=== PATIENT | male | born 1980 | race Caucasian/White ===

== ENCOUNTER 2017-11-09 20:16 | Inpatient (IN) | payer OTHER ==
[~2017-11-09] VITALS: Ht 167.6 cm; Wt 79.4 kg
[~2017-11-09 20:16] MED LIST: AMLODIPINE BESYL5 M1 PO; CIPRO500 M1 PO; CIPROFLOXACIN500 M2 PO; KETOROLAC TROME10 M1 PO; LEVSIN0.125 M1 PO; NEURONTIN800 M2 PO; OXYCODONE-ACET1 EACH PO; PRAVASTATIN SOD20 M2 PO; TAMSULOSIN HCL0.4 M1 PO; TESTOSTERO200 MG/1 M IM; VIAGRA50 MG PO
--- NOTE | 2017-11-09 20:52 | ED DYSPNEA/ASTHMA COMPLAINT ---
History of Present Illness General Chief Complaint: General Adult Stated Complaint: FEVER,SORE THROAT,SINUS PAIN,ROJO,COUGH Source: patient, old records Exam Limitations: no limitations Vital Signs & Intake/Output Vital Signs & Intake/Output Vital Signs Date Time Temp Pulse Resp B/P B/P Pulse O2 O2 Flow FiO2 Mean Ox Delivery Rate 11/092 Room Air 11/09 2029 101.0 110 20 150/80 96 Room Air Allergies Coded Allergies: No Known Allergies (10/25/17) Reconcile Medications Albuterol Sulfate (Proair Hfa) 90 MCG HFA.AER.AD 2 PUF INH Q4-6 PRN PRN DIFFICULTY BREATHING . Amitriptyline HCl 10 MG TABLET 4 TAB PO QPM SLEEP/MIGRAINES (Reported) Amoxicillin/Potassium Clav (Augmentin 875-125 Tablet) 875 MG-125 MG TABLET 1 TAB PO BID pneumonia . Anastrozole 1 MG TABLET 1 TAB PO Sunday DECREASE ESTROGEN LEVELS ( Reported) Aspirin/Acetaminophen/Caffeine (Excedrin Migraine Caplet) 250 MG-250 MG-65 MG TABLET 1 CAP PO BID PRN MIGRAINES (Reported) Azithromycin (Zithromax) 500 MG TABLET 1 TAB PO DAILY PNEUMONIA . Benzonatate (Tessalon Perle) 100 MG CAPSULE 1 CAP PO TID COUGH . Butalb/Acetaminophen/Caffeine (Emaydq-Jwngvzlp-Wnqu 50-300-40) 50 MG-300 MG-40 MG CAPSULE 1 CAP PO Q4H PRN MIGRAINES (Reported) Eszopiclone 3 MG TABLET 1 TAB PO QPM SLEEP (Reported) Fenofibrate Nanocrystallized (Fenofibrate) 145 MG TABLET 1 TAB PO DAILY CHOLESTEROL/TRIGLYCERIDES (Reported) Fluticasone Propionate 50 MCG/ACTUATION SPRAY.SUSP 2 SPRAY NASB DAILY ALLERGIES (Reported) Fluticasone/Vilanterol (Breo Ellipta 100-25 Mcg INH) 100 MCG-25 MCG/DOSE BLST.W.DEV 1 PUF INH DAILY ASTHMA (Reported) Gabapentin 300 MG CAPSULE 1 CAP PO TID NERVE PAIN (Reported) L.acidoph,Paracasei, B.lactis (Probiotic) 10 BILLION CELL CAPSULE 1 TAB PO DAILY GI TAKE WITH ANTIBIOTIC. Losartan Potassium 100 MG TABLET 1 TAB PO DAILY BP (Reported) Orphenadrine Citrate 100 MG TABLET.ER 1 TAB PO BIDP PRN MUSCLE RELAXER ( Reported) Pravastatin Sodium 20 MG TABLET 1 TAB PO DAILY HIGH CHOLESTEROL (Reported) Testosterone Cypionate 200 MG/ML VIAL 1 ML IM QSAT HRT (Reported) Triage Note: PT TO ED C/O COUGH, FEVER, SINUS PAIN, HEADACHE WORSE WITH COUGH, SLIGHT SORE THROAT FOR 3 DAYS. TEMP 102 AT HOME. HAS TRIED MUCINEX, TYLENOL AND HAS BEEN USING BRIO INHALER. "NOT GETTING ANY BETTER" "I CAN'T SLEEP AND NOW I'M KEEPING EVERYBODY ELSE AWAKE TOO" TEMP 101 IN TRIAGE. "I CAN'T STOP COUOGHING" Triage Nurses Notes Reviewed? yes HPI: 37M PMH HTN presenting with 3 days of progressive fever, chills, dry cough, and dyspnea at rest. Patient is consistently coughing, difficulty speaking due to cough. Symptoms started 3 days ago with rigors, febrile 102-103 at home, cough has worsened and now short of breath with rest and with exertion. No sick contacts or recent travel. Reports deep chest pain with cough. Having difficulty breathing. Past History Travel History Traveled to [place] past 21 day No Medical History Any Pertinent Medical History? see below for history Neurological: migraine EENT: NONE Cardiovascular: hypertension, hyperlipidemia Respiratory: asthma Gastrointestinal: NONE Hepatic: NONE Renal: nephrolithiasis Musculoskeletal: NONE Psychiatric: NONE Endocrine: NONE Blood Disorders: NONE Cancer(s): NONE CERTIFIED PUBLIC ACCOUNTANT/Reproductive: TAKES TESTOSTERONE Surgical History Surgical History: non-contributory Psychosocial History What is your primary language Vietnamese Tobacco Use: Quit >30 days ago ETOH Use: denies use Illicit Drug Use: denies illicit drug use Family History Hx Contributory? No Review of Systems Review of Systems Constitutional: Reports: no symptoms. EENTM: Reports: no symptoms. Respiratory: Reports: no symptoms. Cardiovascular: Reports: no symptoms. GI: Reports: no symptoms. Genitourinary: Reports: no symptoms. Musculoskeletal: Reports: no symptoms. Skin: Reports: no symptoms. Neurological/Psychological: Reports: no symptoms. Hematologic/Endocrine: Reports: no symptoms. Immunologic/Allergic: Reports: no symptoms. All Other Systems: Reviewed and Negative Physical Exam Physical Exam General Appearance: well developed/nourished, moderate distress Head: atraumatic, normal appearance Eyes: Bilateral: normal appearance. Ears, Nose, Throat: normal pharynx, normal ENT inspection, hearing grossly normal Neck: normal inspection, full range of motion Respiratory: rhonchi Cardiovascular: regular rate/rhythm Gastrointestinal: soft, non-tender Extremities: normal inspection, normal range of motion Neurologic/Psych: awake, alert, oriented x 3, normal mood/affect Skin: intact, normal color, warm/dry Core Measures ACS in differential dx? No CVA/TIA Diagnosis No Sepsis Present: No Sepsis Focused Exam Completed? No Progress Differential Diagnosis: asthma, bronchitis, musculoskeletal pain, pneumonia Plan of Care: Orders Procedure Date/time Status XRY-CHEST XRAY, TWO VIEWS 11/09 2049 Active COMPREHENSIVE METABOLIC PANEL 11/09 2049 Active CBC WITHOUT DIFFERENTIAL 11/09 2049 Active Current Medications Sig/Gerry Start time Last Medication Dose Stop Time Status Admin Acetaminophen 650 MG ONCE ONE 11/09 2114 UNVr (Tylenol) 11/10 2115 Guaifenesin/Codeine 10 ML ONCE ONE 11/09 2114 UNVr Phosphate 11/10 2115 (Robitussin AC) Laboratory Tests 11/09/17 2100: Sodium Pending, Potassium Pending, Chloride Pending, Carbon Dioxide Pending, Anion Gap Pending, BUN Pending, Creatinine Pending, BUN/Creatinine Ratio Pending , Glucose Pending, Calcium Pending, Total Bilirubin Pending, AST Pending, ALT Pending, Alkaline Phosphatase Pending, Total Protein Pending, Albumin Pending, Globulin Pending, Albumin/Globulin Ratio Pending, CBC w Diff Pending, WBC Pending, RBC Pending, Hgb Pending, Hct Pending, MCV Pending, MCH Pending, MCHC Pending, RDW Pending, Plt Count Pending, MPV Pending Diagnostic Imaging: Viewed by Me: Radiology Read. Discussed w/RAD: Radiology Read. Radiology Impression: PATIENT: LONNIE ANDRE PRESENT AGE: 37 PATIENT ACCOUNT NO: [id number] : 79 LOCATION: [facility] ORDERING PHYSICIAN: Xavier Barrios MD SERVICE DATE: 11/09/17-2049 EXAM TYPE: RAD - XRY-CHEST XRAY, TWO VIEWS EXAMINATION: CHEST 2 VIEWS CLINICAL INFORMATION: FEVER , COUGH, LLL RHONCHI. COMPARISON: No recent pertinent prior studies are available for comparison. TECHNIQUE: AP frontal and lateral views of the chest obtained FINDINGS: Lungs are very hypoexpanded. There is patchy airspace disease more set the left base with subtle air bronchograms. In the acute setting early pneumonia would be suspected. No significant effusion, overt edema, or pneumothorax. Cardiac and mediastinal silhouettes within normal limits for size. IMPRESSION: Patchy airspace disease more set the left base with air is subtle air bronchograms suggested. Early left basilar infiltrate would be favored. DICTATED BY: Pollo Melgar MD DATE/TIME DICTATED:11/09/172142 ANGLESMITH:JESSICA DATE/TIME TRANSCRIBED:11/09/172142 CONFIDENTIAL, DO NOT COPY WITHOUT APPROPRIATE AUTHORIZATION. <Electronically signed in Other Vendor System> SIGNED BY: Pollo Melgar MD 11/09/172146 Initial ED EKG: none Departure Departure Disposition: STILL A PATIENT Condition: Stable Clinical Impression Primary Impression: Sepsis Qualifiers: Sepsis type: sepsis due to unspecified organism Qualified Code: A41.9 - Sepsis, unspecified organism Secondary Impressions: Left lower lobe pneumonia Qualifiers: Pneumonia type: due to unspecified organism Qualified Code: J18.1 - Lobar pneumonia, unspecified organism Referrals: Shahzad Mendez MD (PCP/Family) Departure Forms: Customer Survey General Discharge Information Prescriptions: Current Visit Scripts L.acidoph,Paracasei, B.lactis (Probiotic) 1 TAB PO DAILY #12 TAB TAKE WITH ANTIBIOTIC. Benzonatate (Tessalon Perle) 1 CAP PO TID #21 CAP . Albuterol Sulfate (Proair Hfa) 2 PUF INH Q4-6 PRN PRN DIFFICULTY BREATHING #1 INHAL . Amoxicillin/Potassium Clav (Augmentin 875-125 Tablet) 1 TAB PO BID #12 TAB . Azithromycin (Zithromax) 1 TAB PO DAILY #1 TAB . Admission Note Spoke With: Doc PETERSEN,Gume Documentation of Exam: Documentation of any treatments & extenuating circumstances including Concerns Regarding Discharge (functional status, medication knowledge or non-compliance, living conditions, etc.) that warrant an admission rather than observation: SEPSIS SECONDARY TO PNEUMONIA, WILL REQUIRE INPATIENT ADMISSION FOR IV ANTIBIOTICS, IV FLUIDS, MONITORING OF RENAL FUNCTION, POSSIBLE ID CONSULT, FOLLOW UP IMAGING. Critical Care Note Critical Care Note Critical Care Time: 30-74 min
[2017-11-09 21:32] LABS: ABSOLUTE BASOPHIL COUNT 0 /CUMM (0.0-0.2); ABSOLUTE EOSINOPHIL COUNT 0 /CUMM (0.0-0.7); ABSOLUTE GRANULOCYTE CT 15.2 /CUMM (1.4-6.5); ABSOLUTE LYMPH COUNT 1.2 /CUMM (1.2-3.4); ABSOLUTE MONOCYTE COUNT 0.9 /CUMM (0.10-0.60); BASOPHIL % 0 % (0.0-2.0); EOSINOPHIL % 0.2 % (0-5); HEMATOCRIT 39.5 % (42-52); MEAN CORPUSCULAR HGB 29.5 PG (27.0-31.0); MEAN CORPUSCULAR VOLUME 86.7 FL (80.0-94.0); MEAN PLATELET VOLUME 7.6 FL (7.4-10.4); PLATELET COUNT 340 /CUMM (130-400); RBC DISTRIBUTION WIDTH 13.6 % (11.5-14.5); RED BLOOD CELL CT 4.56 /CUMM (4.70-6.10); WHITE BLOOD CELL COUNT 17.3 /CUMM (4.8-10.8)
--- NOTE | 2017-11-09 21:47 | RADIOLOGY REPORT ---
EXAMINATION: CHEST 2 VIEWS CLINICAL INFORMATION: FEVER, COUGH, LLL RHONCHI. COMPARISON: No recent pertinent prior studies are available for comparison. TECHNIQUE: AP frontal and lateral views of the chest obtained FINDINGS: Lungs are very hypoexpanded. There is patchy airspace disease more set the left base with subtle air bronchograms. In the acute setting early pneumonia would be suspected. No significant effusion, overt edema, or pneumothorax. Cardiac and mediastinal silhouettes within normal limits for size. IMPRESSION: Patchy airspace disease more set the left base with air is subtle air bronchograms suggested. Early left basilar infiltrate would be favored.
[2017-11-09 21:57] LABS: GRANULOCYTE % 87.9 % (42.2-75.2)
--- NOTE | 2017-11-09 22:04 | History & Physical ---
Pollo Feliz MD 11/09/17 2203: General Information and HPI MD Statement: I have seen and personally examined LONNIE ANDRE and documented this H&P. The patient is a 37 year old M who presented with a patient stated chief complaint of cough and fever. Source of Information: patient Exam Limitations: no limitations History of Present Illness: 37 year old male with PMH of HTN, HLD, former smoker, asthma (COPD?) on Breo, and recent LLQ abdominal pain and treated for UTI, thought to be nephrolithiasis because of microscopic hematuria but had negative CT imaging presents with several day of cough with SIRS criteria and LLL infiltrate on chest x-ray, admitted for management of sepsis secondary to community acquired pneumonia. The patient's complaints started three days ago with fevers and chills, tmax 102.8 at home for which he took aspirin and tylenol at home. The patient's only sick contact (2yo) was his son who had the common cold. The patient then developed symptoms of URI, with rhinorrhea and sore throat, and worsening cough productive of yellow sputum. His fever continues and he complains of fatigue. He has developed chest, abdominal, back pain, and headache all aggravated by coughing. He came to the ED after continuing to have fever and increased frequency of coughing with associated shortness of breath. He recently complete a course of ciprofloxacin after possible UTI and had some diarrhea from the antibiotic. That resolved after completion but has now recurred after becoming ill, with 4 episodes of diarrhea/loose stool today. In the ED, he met SIRS criteria with an early infiltrate on chest x-ray and was admitted for management of pneumonia. 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 Ambulation: independent IADLs Independent: shopping, housework, finances, food prep, telephone, transportation , medication admin. Employment History Employment Employed Review of Systems Review of Systems Constitutional: Reports: chills, diaphoresis, fever. EENTM: Reports: nasal congestion, throat pain. Cardiovascular: Reports: chest pain. Denies: orthopena, palpitations. Respiratory: Reports: cough, short of breath, sputum production. GI: Reports: abdominal pain. Denies: diarrhea, nausea, vomiting. Genitourinary: Reports: no symptoms. Musculoskeletal: Reports: back pain. Skin: Reports: no symptoms. Neurological/Psychological: Reports: no symptoms. Hematologic/Endocrine: Reports: no symptoms. Immunologic/Allergic: Reports: no symptoms. All Other Systems: Reviewed and Negative Exam & Diagnostic Data Last 24 Hrs of Vital Signs/I&O Vital Signs Date Time Temp Pulse Resp B/P B/P Pulse O2 O2 Flow FiO2 Mean Ox Delivery Rate 11/09 2110 101.0 11/09 2101 Room Air 11/09 2029 101.0 110 20 150/80 96 Room Air Physical Exam General Appearance Alert, Oriented X3, Cooperative, No Acute Distress Skin No Rashes Skin Temp/Moisture Exam: Warm/Dry Sepsis Skin Exam (color): Normal for Ethnicity Cardiovascular Regular Rate, Normal S1, Normal S2, No Murmurs Lungs left basilar rhonchi Abdomen Normal Bowel Sounds, Soft, No Tenderness, No Masses Extremities No Clubbing, No Cyanosis, No Edema, Normal Pulses Sepsis Peripheral Pulse Location: Radial Sepsis Peripheral Pulse Exam: Normal Sepsis Cap Refill Exam: <2 Sec Last 24 Hrs of Labs/Tae: Laboratory Tests 11/09/17 2201: Lactic Acid Cancelled 11/09/17 2100: Anion Gap 17 H, Estimated GFR > 60, BUN/Creatinine Ratio 11.8, Glucose 100 H, Calcium 9.9, Total Bilirubin 0.5, AST 31, ALT 30, Alkaline Phosphatase 69, Total Protein 7.3, Albumin 4.1, Globulin 3.2, Albumin/Globulin Ratio 1.3, CBC w Diff MAN DIFF ORDERED, RBC 4.56 L, MCV 86.7, MCH 29.5, MCHC 34.0, RDW 13.6, MPV 7.6, Gran % 87.9 H, Lymphocytes % 6.9 L, Monocytes % 5.0, Eosinophils % 0.2, Basophils % 0, Absolute Granulocytes 15.2 H, Segmented Neutrophils Pending, Absolute Lymphocytes 1.2, Absolute Monocytes 0.9 H, Absolute Eosinophils 0, Absolute Basophils 0 Microbiology 11/09 2200 BLOOD: Blood Culture - ORD 11/09 2200 BLOOD: Blood Culture - ORD Diagnostic Data EKG Results sinus tachycardia without ischemic changes CXR Results FINDINGS: Lungs are very hypoexpanded. There is patchy airspace disease more set the left base with subtle air bronchograms. In the acute setting early pneumonia would be suspected. No significant effusion, overt edema, or pneumothorax. Cardiac and mediastinal silhouettes within normal limits for size. IMPRESSION: Patchy airspace disease more set the left base with air is subtle air bronchograms suggested. Early left basilar infiltrate would be favored. Assessment/Plan Assessment: 37 year old male with PMH of HTN, HLD, and nephrolithiasis presents with several day of cough with SIRS criteria and LLL infiltrate on chest x-ray, admitted for management of sepsis secondary to community acquired pneumonia. Sepsis secondary to community acquired pneumonia: Leukocytosis, tachycardia, fever and early infiltrate on chest x-ray Chest f-[id number]-[id number] airspace disease more set the left base with subtle air bronchograms Blood cultures x 2 Obtain sputum culture Ceftriaxone and azithromycin now Bolus crystalloid 30cc/kg Check legionella and strep pneumo urinary antigens Check UA and urine culture to rule out other sources of infection although unlikely Trend lactic acid TRC evaluation Mucinex 600mg po bid and nebulized albuterol Anion gap metabolic acidosis: likely secondary to lactic acidemia in the setting of sepsis, pneumonia, hypoperfusion Continue intravascular volume resuscitation Trend lactic acid HTN: Continue losartan HLD: Continue statin therapy Possible nephrolithiasis/recent UTI: Recently completed course of ciprofloxacin Recent CT showed atrophic left kidney, hypertrophied right, no stone Hold testosterone supplement Heart healthy diet DVT ppx-lovenox 40mg subcutaneous daily Full code As Ranked By This Provider Problem List: 1. Pneumonia Core Measures/Misc (02/18) Acute Coronary Syndrome ACS Diagnosis: No Congestive Heart Failure Congestive Heart Failure Diagnosis No Cerebrovascular Accident CVA/TIA Diagnosis: No VTE (View Protocol) VTE Risk Factors Acute Medical Illness No Mechanical VTE Prophylaxis d/t N/A MechProphylax Ordered No VTE Pharm Prophylaxis d/t NA PharmProphylax ordered Sepsis (View protocol) Sepsis Present: Yes If YES complete Sepsis Event Note If YES complete Sepsis Event Note Maximiliano PETERSEN,Teresita 11/09/17 6851: General Information and HPI Allergies/Medications Home Med list Amitriptyline HCl 10 MG TABLET 4 TAB PO QPM SLEEP/MIGRAINES (Reported) Anastrozole 1 MG TABLET 1 TAB PO Sunday DECREASE ESTROGEN LEVELS ( Reported) Aspirin/Acetaminophen/Caffeine (Excedrin Migraine Caplet) 250 MG-250 MG-65 MG TABLET 1 CAP PO BID PRN MIGRAINES (Reported) Butalb/Acetaminophen/Caffeine (Irpnnr-Awaphvkf-Crgb 50-300-40) 50 MG-300 MG-40 MG CAPSULE 1 CAP PO Q4H PRN MIGRAINES (Reported) Eszopiclone 3 MG TABLET 1 TAB PO QPM SLEEP (Reported) Fenofibrate Nanocrystallized (Fenofibrate) 145 MG TABLET 1 TAB PO DAILY CHOLESTEROL/TRIGLYCERIDES (Reported) Fluticasone Propionate 50 MCG/ACTUATION SPRAY.SUSP 2 SPRAY NASB DAILY ALLERGIES (Reported) Fluticasone/Vilanterol (Breo Ellipta 100-25 Mcg INH) 100 MCG-25 MCG/DOSE BLST.W.DEV 1 PUF INH DAILY ASTHMA (Reported) Gabapentin 300 MG CAPSULE 1 CAP PO TID NERVE PAIN (Reported) Losartan Potassium 100 MG TABLET 1 TAB PO DAILY BP (Reported) Orphenadrine Citrate 100 MG TABLET.ER 1 TAB PO BIDP PRN MUSCLE RELAXER ( Reported) Pravastatin Sodium 20 MG TABLET 1 TAB PO DAILY HIGH CHOLESTEROL (Reported) Testosterone Cypionate 200 MG/ML VIAL 1 ML IM QSAT HRT (Reported) Core Measures/Misc (02/18) Sepsis (View protocol) If YES complete Sepsis Event Note If YES complete Sepsis Event Note Resident Review Statement Resident Statement: examined this patient, discussed with legal summer intern, agreed with legal summer intern, discussed with family, reviewed EMR data (avail), discussed with nursing , discussed with case mgmt, reviewed images, amended to note Other Findings: Patient is a 37 YO M with PMH significant for asthma, hypertension, hyperlipidemia, nephrolithiasis, chronic migraines on Botox, cervical spine fusion presented to [facility] with progressive worsening of fevers for the past 3 days. Patient started experiencing dry cough, chest pain with breathing, yellowish phlegm production after fever. Started experiencing shortness of breath today. Sick contact at home -son. He was here 2 weeks ago for hematuria and left flank pain, discharged with cipro, ketorolac, hyoscyamine , reportedly developed diarrhea after these medications. VS at presentation T- max 101, heart rate 110, blood pressure 150/80 mmHg, saturating well on room air. Physical examination significant for mid dilated pupils, pharyngeal erythema, decreased breath sounds on the left side of chest, normal heart sounds. Labs did show leukocytosis of 17, with left shift, normal chem tyron did show AG 17, bicarb 20. Imaging - dense consolidation on left side of chest. Problem list 1. CAP with sepsis 2. HTN 3. HLD 4. low testosterone levels Plan Admit to general medicine floor Sepsis secondary to community acquired pneumonia SIRS positive with mild AG, leukocytoisis. * IV ceftriaxine and azithromycin * sputum cultures, strep pneumo antigen and legionella * Rapid strep and flu * Hold off on steroids for now. * Gentle hydration HTN: continue losartan HLD: continue statin Left renal atrophy/right renal hypertrophy: needs outpatient follow up DVT prophylaxis SC heparin Code status Full code Doc PETERSEN, [facility] 11/10/17 0110: Core Measures/Misc (02/18) Sepsis (View protocol) If YES complete Sepsis Event Note If YES complete Sepsis Event Note Attending MD Review Statement Attending Statement Attending MD Statement: examined this patient, discuss w/resident/PA/MAINTENANCE DIRECTOR, agreed w/resident/PA/MAINTENANCE DIRECTOR, reviewed images, amended to note Attending Assessment/Plan: 37 yo M with h/o HTN, asthma (diagnosed 2017), seasonal allergies, HLD, chronic migraine headaches on Q3 Botox Rx, is here with 3-day h/o sore throat, intractable cough, fever (102), exertional dyspnea and malaise. Cough was initially productive of yellow phlegm, but now its a dry hacking cough with pleuritic chest pain. He has tried mucinex, tylenol and breo inhaler without relief. Patient does not have an albuterol rescue inhaler. He is a non-smoker. Sick contact son had a cold. Of note, patient was recently treated with Cipro for a UTI/ pyelonephritis. He reports having diarrhea (semi-formed stools) for past 2 days which he attributes to hyoscamine. Vitals: Tmax 101, tachycardic to 100-110's, BP 150/80, sats 96% RA. Exam: AAO, in moderate distress due to cough, pharyngeal erythema+, mucosa dry, Neck supple, Chest: left basilar crackles+, no wheeze or rhonchi, Heart S1S2 tachycardic, Abd soft, NT, LE no edema. Labs: WBC 17.3, H/H 13.4/39.5, Plt 340, AG 17, bicarb 20, glucose 100, Creat 1.1, lactic acid 0.8. CXR: patchy airspace disease more at the left base with subtle air bronchograms EKG: sinus tachycardia, no acute changes. CT abd/pelvis (10/26): atrophic left kidney with compensatory hypertrophy of right kidney. No acute abnormality in abdomen. Assessment and plan: 1. Sepsis 2. Acute bacterial bronchitis with left lower lobe pneumonia 3. Anion gap metabolic acidosis ?cause, diarrhea should cause a NAGMA 4. History of asthma and seasonal allergies 5. Essential hypertension 6. Atrophic left kidney - Admit to General medicine - Blood culture x 2, sputum culture - Check strep throat, urine legionella and strep Ag - Check urinalysis and urine drug screen - Respiratory care with scheduled and PRN albuterol with ipratropium - IV ceftriaxone and azithromycin - Add tessalon caps for cough - No need for IV steroids - IV fluids, trend lactic acid - Check aspirin, tylenol and alcohol levels - Outpatient nephrology work up, renal functions remain at baseline - Resume all home meds amitriptyline, losartan, pravastatin, fenofibrate. DVT ppx Lovenox. Full code.
[2017-11-09] MEDS ORDERED: LOSARTAN POTAS100 M1 PO (22:25)
[2017-11-09] MEDS ORDERED: FENOFIBRATE145 M1 PO (22:25)
[2017-11-09] MEDS ORDERED: AMITRIPTYLINE H10 M2 PO (22:26)
[2017-11-09] MEDS ORDERED: FLUTICASONE PRO16 GM NASB (22:26)
[2017-11-09] MEDS ORDERED: GABAPENTIN300 M2 PO (22:26)
[2017-11-09] MEDS ORDERED: ORPHENADRINE C100 MG PO (22:26)
[2017-11-09] MEDS ORDERED: BUTALB-ACETAMI1 EAC1 PO (22:27)
[2017-11-09] MEDS ORDERED: ESZOPICLONE3 M1 PO (22:28)
[2017-11-09] MEDS ORDERED: ANASTROZOLE1 M1 PO (22:29)
[2017-11-09] MEDS ORDERED: BREO ELLIPTA 11 EACH INH (22:30)
[2017-11-09] MEDS ORDERED: EXCEDRIN MIGRA1 EAC1 PO (22:32)
--- NOTE | 2017-11-09 22:44 | Admission Certification ---
Admission Certification Certification Statement - As attending physician, I certify that at the time of - admission, based on clinical presentation, severity of - symptoms, need for further diagnostic testing and - therapeutic interventions, and risk of adverse outcomes - without in-hospital treatment, in my clinical assessment, - this patient requires an acute hospital stay for a minimum - of two nights or longer. I have also considered psychsocial - factors such as support system, advanced age, financial - issues, cognitive issues, and failed out-patient treatments, - past re-admission history, safety of patient, and lack of - compliance as applicable. Specific rationale supporting this admission is: Sepsis, left lower lobe pneumonia.
[2017-11-10 00:43] VITALS: BP 126/72
--- NOTE | 2017-11-10 05:22 | PN- Housestaff ---
Subjective Follow-up For: sepsis community acquired pneumonia Subjective: patient is complaining of significant cough and chest pain added several antitussive medications for symptomatic relief febrile overnight, tmax 101, currently afebrile hardly slept overnight Review of Systems Constitutional: Reports: see HPI. Objective Last 24 Hrs of Vital Signs/I&O Vital Signs Date Time Temp Pulse Resp B/P B/P Pulse O2 O2 Flow FiO2 Mean Ox Delivery Rate 11/10 0055 95 Room Air 11/10 0043 98.6 96 18 126/72 95 Room Air 11/09 2323 99.6 103 20 152/75 95 Room Air 11/09 2111 101.0 11/09 210 Room Air 11/09 2030 101.0 110 20 150/80 96 Room Air Intake & Output 11/10 0800 11/10 0000 11/09 1600 Intake Total 2250 Output Total Balance 2250 Intake, IV 2250 Patient 79.379 kg 79.379 kg Weight Weight Reported by Patient Reported by Patient Measurement Method Physical Exam General Appearance: Alert, Oriented X3, Cooperative Cardiovascular: Regular Rate, Normal S1, Normal S2, No Murmurs Lungs: bibasilar rhonchi Abdomen: Normal Bowel Sounds, Soft, No Tenderness, No Masses Extremities: No Clubbing, No Cyanosis, No Edema, Normal Pulses Current Medications: Current Medications Sig/Gerry Start time Last Medication Dose Route Stop Time Status Admin Acetaminophen 650 MG Q6-PRN PRN 11/10 0115 AC PO Acetaminophen 650 MG ONCE ONE 11/09 2114 DC 11/09 PO 11/09 Albuterol Sulfate 3 ML ONCE ONE 11/09 2100 DC 11/09 INH 11/09 2100 210 Azithromycin 500 MG Q24H 11/10 899 AC Sodium Chloride 250 ML IV Azithromycin 500 MG ONCE ONE 11/09 2199 DC 11/09 Sodium Chloride 250 ML IV 11/09 2258 224 Benzocaine/Menthol 1 LEAH Q2P PRN 11/10 0330 AC 11/10 PO 0417 Benzonatate 100 MG TID PRN 11/10 0315 AC PO 11/13 031 Ceftriaxone Sodium 1,000 MG DAILY 11/10 899 AC IV Ceftriaxone Sodium 0 .STK-MED ONE 11/09 2237 DC .ROUTE Ceftriaxone Sodium 1,000 MG ONCE ONE 11/09 2199 DC 11/09 IV 11/09 2200 224 Guaifenesin 600 MG BID 11/10 314 11/10 PO 0339 Guaifenesin/Codeine 10 ML Q4 HRS NEEDED PRN 11/10 329 11/10 [place] PO 0337 Guaifenesin/Codeine 10 ML ONCE ONE 11/09 2114 DC 11/09 Phosphate PO 11/09 Methylprednisolone 0 .STK-MED ONE 11/09 2245 DC .ROUTE Methylprednisolone 125 MG ONCE ONE 11/09 2199 DC /08 IV 11/09 Morphine Sulfate 0 .STK-MED ONE 11/10 2219 DC .ROUTE Morphine Sulfate 2 MG ONCE ONE 11/09 2199 DC / IV 11/09 2200 222 Oxycodone HCl 5 MG Q6 PRN 11/10 011 11/10 PO 0143 Sodium Chloride 1,000 ML BOLUS ONE 11/09 2199 DC /08 IV 11/09 2258 222 Sodium Chloride 1,000 ML BOLUS ONE 11/09 2199 DC / IV 11/09 2258 2324 Zolpidem Tartrate 5 MG AT BEDTIME 11/10 020 11/10 PO 0212 Last 24 Hrs of Lab/Tae Results Last 24 Hrs of Labs/Mics: Laboratory Tests 11/10/17 0119: Urine Color YEL, Urine Clarity CLEAR, Urine pH 6.0, Ur Specific [place] <= 1.005 , Urine Protein NEG, Urine Ketones NEG, Urine Nitrite NEG, Urine Bilirubin NEG, Urine Urobilinogen 0.2, Ur Leukocyte Esterase NEG, Ur Microscopic EXAM NOT REQUIRED, Urine Hemoglobin NEG, Urine Glucose NEG 11/10/17 0101: Lactic Acid Cancelled 11/09/17 2201: Lactic Acid Cancelled 11/09/17 2100: Lactic Acid 0.8 11/09/17 2100: Anion Gap 17 H, Estimated GFR > 60, BUN/Creatinine Ratio 11.8, Glucose 100 H, Calcium 9.9, Total Bilirubin 0.5, AST 31, ALT 30, Alkaline Phosphatase 69, Total Protein 7.3, Albumin 4.1, Globulin 3.2, Albumin/Globulin Ratio 1.3, CBC w Diff MAN DIFF ORDERED, RBC 4.56 L, MCV 86.7, MCH 29.5, MCHC 34.0, RDW 13.6, MPV 7.6, Gran % 87.9 H, Lymphocytes % 6.9 L, Monocytes % 5.0, Eosinophils % 0.2, Basophils % 0, Absolute Granulocytes 15.2 H, Segmented Neutrophils 87 H, Absolute Lymphocytes 1.2, Lymphocytes 7 L, Monocytes 6, Absolute Monocytes 0.9 H, Absolute Eosinophils 0, Absolute Basophils 0, Platelet Estimate VERIFIED BY SMEAR, Normocytic RBCs VERIFIED, Normochromic RBCs VERIFIED, Fld Total RBCs Counted 100 Microbiology 11/10 0151 NASOPHARYN: Influenza Virus A & B Rapid Smear - COMP 11/10 118 URINE ROUT: Legionella Antigen - RES 11/10 118 URINE ROUT: Streptococcus pneumoniae Antigen (M - RES 11/10 118 URINE ROUT: Urine Culture - RES 11/09 225 STOOL: Clostridium difficile Toxin A & B - CAN Cancelled: Cancelled via OE: Per MD Decision 11/09 2224 BLOOD: Blood Culture - RECD 11/09 2209 BLOOD: Blood Culture - RECD 11/09 2200 BLOOD: Blood Culture - CAN Cancelled: DUP.ORDER 11/09 2200 BLOOD: Blood Culture - CAN Cancelled: DUP.ORDER Assessment/Plan Assessment: 37 year old male with PMH of HTN, HLD, and nephrolithiasis presents with several day of cough with SIRS criteria and LLL infiltrate on chest x-ray, admitted for management of sepsis secondary to community acquired pneumonia. Sepsis secondary to community acquired pneumonia: Leukocytosis, tachycardia, fever and early infiltrate on chest x-ray Chest [id number] airspace disease more set the left base with subtle air bronchograms Blood cultures x 2 Obtain sputum culture Continue ceftriaxone and azithromycin Legionella and strep pneumo urinary antigens negative Lactic acid normal TRC evaluation Mucinex 600mg po bid and nebulized albuterol [place] [address] without bandemia, trend CBC No supplemental oxygen requirement at this time Continue robitussin and tessalon for cough Anion gap metabolic acidosis: likely secondary to lactic acidemia in the setting of sepsis, pneumonia, hypoperfusion Continue intravascular volume resuscitation Trend lactic acid HTN: Continue losartan HLD: Continue statin therapy Possible nephrolithiasis/recent UTI: Recently completed course of ciprofloxacin Recent CT showed atrophic left kidney, hypertrophied right, no stone Add C diff if diarrhea recurs Headache/migraine: Continue fioricet prn and gabapentin and elavil Hold testosterone supplement Heart healthy diet DVT ppx-lovenox 40mg subcutaneous daily Full code Problem List: 1. Pneumonia Pain Ratin Pain Location: chest Pain Goal: Pain 4 or less Pain Plan: prn Tomorrow's Labs & Rationales: cbc, bep
[2017-11-10 06:00] VITALS: BP 130/82
--- NOTE | 2017-11-10 08:26 | PN- Att Addend ---
Attending Addendum Attending Brief Note Patient seen and examined. 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 Patient sitting in bed. Not in respiratory distress. Not in painful distress. Complains of cough. He is afebrile. He is hemodynamically stable. Vital Signs Date Time Temp Pulse Resp B/P B/P Pulse O2 O2 Flow FiO2 Mean Ox Delivery Rate 11/10 0600 98.1 94 18 130/82 94 Room Air 11/10 0055 95 Room Air 11/10 0043 98.6 96 18 126/72 95 Room Air 11/09 2323 99.6 103 20 152/75 95 Room Air 11/09 2111 101.0 11/09 2102 Room Air 11/09 2030 101.0 110 20 150/80 96 Room Air General appearance: Well-developed and not in any acute distress. HEENT: Anicteric, no pallor, pupils equal and reactive. Neck: Supple with no jugular venous distention. Heart: S1-S2 regular with no audible murmur. Lungs: Diminished air entry bilaterally with no added sounds. Abdomen: Nondistended with normal bowel sounds. Soft, nontender with no palpable masses. Extremities: No pedal edema. No cyanosis. Skin: Intact Laboratory Tests 11/10/17 0725: Anion Gap 15, Estimated GFR > 60, BUN/Creatinine Ratio 13.3 11/10/17 0119: Urine Color YEL, Urine Clarity CLEAR, Urine pH 6.0, Ur Specific [place] <= 1.005 , Urine Protein NEG, Urine Ketones NEG, Urine Nitrite NEG, Urine Bilirubin NEG, Urine Urobilinogen 0.2, Ur Leukocyte Esterase NEG, Ur Microscopic EXAM NOT REQUIRED, Urine Hemoglobin NEG, Urine Glucose NEG 11/10/17 0101: Lactic Acid Cancelled 11/09/17 2201: Lactic Acid Cancelled 11/09/17 2100: Lactic Acid 0.8 11/09/17 2100: Anion Gap 17 H, Estimated GFR > 60, BUN/Creatinine Ratio 11.8, Glucose 100 H, Calcium 9.9, Total Bilirubin 0.5, AST 31, ALT 30, Alkaline Phosphatase 69, Total Protein 7.3, Albumin 4.1, Globulin 3.2, Albumin/Globulin Ratio 1.3, CBC w Diff MAN DIFF ORDERED, RBC 4.56 L, MCV 86.7, MCH 29.5, MCHC 34.0, RDW 13.6, MPV 7.6, Gran % 87.9 H, Lymphocytes % 6.9 L, Monocytes % 5.0, Eosinophils % 0.2, Basophils % 0, Absolute Granulocytes 15.2 H, Segmented Neutrophils 87 H, Absolute Lymphocytes 1.2, Lymphocytes 7 L, Monocytes 6, Absolute Monocytes 0.9 H, Absolute Eosinophils 0, Absolute Basophils 0, Platelet Estimate VERIFIED BY SMEAR, Normocytic RBCs VERIFIED, Normochromic RBCs VERIFIED, Fld Total RBCs Counted 100 Microbiology 11/10 0151 NASOPHARYN: Influenza Virus A & B Rapid Smear - COMP 11/10 118 URINE ROUT: Legionella Antigen - RES 11/10 118 URINE ROUT: Streptococcus pneumoniae Antigen (M - RES 11/10 118 URINE ROUT: Urine Culture - RES 11/09 2254 STOOL: Clostridium difficile Toxin A & B - CAN Cancelled: Cancelled via OE: Per MD Decision 11/09 2224 BLOOD: Blood Culture - RECD 11/09 2209 BLOOD: Blood Culture - RECD 11/09 2200 BLOOD: Blood Culture - CAN Cancelled: DUP.ORDER 11/09 2200 BLOOD: Blood Culture - CAN Cancelled: DUP.ORDER Problems: 1. Sepsis secondary to committee acquired pneumonia. 2. Hypertension Plan: -Continue broad-spectrum antibiotic therapy with Rocephin and azithromycin. -Continue cough suppression therapy. -Obtain sputum cultures -If he remains afebrile over the next 48 hours on white cell count is trending down he may be transitioned to oral antibiotic therapy and discharge home. -He will require repeat chest x-ray in 2 weeks to document resolution of the present x-ray findings. If those findings persist he will require CT imaging. -Continue his antihypertensive regimen. -No clinical evidence of urinary tract infection at present.
[2017-11-10 15:01] VITALS: BP 130/80
[2017-11-10 21:42] VITALS: BP 140/100
[2017-11-11 06:09] VITALS: BP 142/104
[2017-11-11 06:30] VITALS: BP 142/104
[2017-11-11 08:34] LABS: ABSOLUTE BASOPHIL COUNT 0 /CUMM (0.0-0.2); ABSOLUTE EOSINOPHIL COUNT 0.2 /CUMM (0.0-0.7); ABSOLUTE GRANULOCYTE CT 7.6 /CUMM (1.4-6.5); ABSOLUTE LYMPH COUNT 2.1 /CUMM (1.2-3.4); ABSOLUTE MONOCYTE COUNT 0.6 /CUMM (0.10-0.60); BASOPHIL % 0.3 % (0.0-2.0); EOSINOPHIL % 1.7 % (0-5); GRANULOCYTE % 72.2 % (42.2-75.2); HEMATOCRIT 39.6 % (42-52); MEAN CORPUSCULAR VOLUME 88.2 FL (80.0-94.0); MEAN PLATELET VOLUME 7.5 FL (7.4-10.4); PLATELET COUNT 378 /CUMM (130-400); RBC DISTRIBUTION WIDTH 14.2 % (11.5-14.5); RED BLOOD CELL CT 4.49 /CUMM (4.70-6.10); WHITE BLOOD CELL COUNT 10.5 /CUMM (4.8-10.8)
--- NOTE | 2017-11-11 08:45 | PN- Housestaff ---
Ameya PETERSEN,Britt 11/11/17 0845: Subjective Follow-up For: Community acquired pneumonia Subjective: Patient was seen and examined today. Patient remains afebrile overnight. Patient reports signifcant migraine - rates it a 9/10 in severity. Reports he has had cervical spinal surgery and has required botox. Patient had his fiorocet today however it has not relieved the pain. Patient reports continued cough and pleuritic chest pain with deep breaths. Patient received a respiratory treatement today which he states has helped. Review of Systems Constitutional: Reports: see HPI. Objective Last 24 Hrs of Vital Signs/I&O Vital Signs Date Time Temp Pulse Resp B/P B/P Pulse O2 O2 Flow FiO2 Mean Ox Delivery Rate 11/11 1559 Room Air 11/11 1443 98.8 66 20 140/94 95 Room Air 11/11 1116 96 Room Air Room Air 11/11 0847 64 142/104 11/11 0800 Room Air 11/11 0630 64 142/104 11/11 0609 98.5 64 20 142/104 96 / 0000 97 11/10 2142 98.3 72 20 140/100 97 Room Air 11/10 2000 Room Air 11/10 1748 4.0 Intake & Output 11/11 1600 10 0800 11/11 0000 Intake Total 900 240 Output Total Balance 900 240 Intake, IV 250 Intake, Oral 650 240 Physical Exam General Appearance: Alert, Oriented X3, Cooperative, No Acute Distress Skin: No Rashes Sepsis Skin Exam (color): Normal for Ethnicity HEENT: Atraumatic, Mucous Membr. moist/pink Cardiovascular: Regular Rate, Normal S1, Normal S2 Lungs: coarse breath sound bilaterally Abdomen: Normal Bowel Sounds, Soft, No Tenderness Neurological: Normal Speech, Cranial Nerves 3-12 NL Extremities: No Clubbing, No Cyanosis, No Edema, Normal Pulses, No Tenderness/ Swelling Assessment/Plan Assessment: 37 year old male with PMH of HTN, HLD, and nephrolithiasis presents with several day of cough with SIRS criteria and LLL infiltrate on chest x-ray, admitted for management of sepsis secondary to community acquired pneumonia. Sepsis secondary to community acquired pneumonia: Patient remains afebrile with resolution of leukocytosis on IV antibiotics. Patient is not requiring oxygen supplementation. Blood cultures with no growth to date. Prelim sputum cultures showing light mixed rosalia. Legionella and strep negative. Leukocytosis, tachycardia, fever and early infiltrate on chest x-ray Chest [id number] airspace disease more set the left base with subtle air bronchograms Repeat CXR in AM If patient deteriorates obtain CBC and BEP Follow up Blood cultures x 2 Follow up Sputum culture Continue ceftriaxone and azithromycin TRC evaluation Mucinex 600mg po bid and nebulized albuterol Continue robitussin and tessalon for cough Anion gap metabolic acidosis: Resolved HTN: Continue losartan HLD: Continue statin therapy Possible nephrolithiasis/recent UTI: Recently completed course of ciprofloxacin Recent CT showed atrophic left kidney, hypertrophied right, no stone Add C diff if diarrhea recurs Headache/migraine: Continue fioricet prn and gabapentin Tylenol and Andrei PRN for pain Hold testosterone supplement Heart healthy diet DVT ppx-lovenox 40mg subcutaneous daily Full code Problem List: 1. Pneumonia Pain Ratin Pain Location: head Pain Goal: Pain 7 or less Pain Plan: fiorocet andrei tylenol Tomorrow's Labs & Rationales: none Ferdinand PETERSEN,Nuris 11/11/17 1004: Attending MD Review Statement Attending Statement Attending MD Statement: examined this patient, discuss w/resident/PA/PARCEL CARRIER, agreed w/resident/PA/PARCEL CARRIER, reviewed EMR data (avail), discussed with nursing, discussed with case mgmt, amended to note Attending Assessment/Plan: Patient seen and examined. Resting comfortably and not in any acute distress. Reports feeling better compared to presentation. He still has a productive cough. He is afebrile. He is not requiring oxygen supplementation. On examination he does have adequate entry bilaterally with no added sounds. Sputum cultures show mixed rosalia. Recommendations: -Continue antibiotic therapy with azithromycin and Rocephin today. If patient remains clinically stable transition to oral antibiotic therapy tomorrow to complete 10 days of treatment. Repeat chest x-ray tomorrow am. -Anticipate discharge tomorrow. Patient to follow-up with his private care provider for repeat chest x-ray in 1 week. -Repeat serum chemistry and CBC in a.m. if there is a change in his clinical condition.
[2017-11-11 14:43] VITALS: BP 140/94
--- NOTE | 2017-11-11 18:27 | Patient Discharge Instructions ---
Discharge Instructions General Discharge Information You were seen/treated for: Pneumonia Special Instructions: 1. Follow up with your pcp within 1 week of discharge 2. Take medications as prescribed Acute Coronary Syndrome Inclusion Criteria At DC or during hospital stay patient has or had the following: ACS DIAGNOSIS No Discharge Core Measures Meds if any: Prescribed or Continued at Discharge Meds if any: NOT Prescribed or Continued at Discharge Congestive Heart Failure Inclusion Criteria At DC or during hospital stay patient has or had the following: CHF DIAGNOSIS No Discharge Core Measures Meds if any: Prescribed or Continued at Discharge Meds if any: NOT Prescribed or Continued at Discharge Cerebrovascular accident Inclusion Criteria At DC or during hospital stay patient has or had the following: CVA/TIA Diagnosis No Discharge Core Measures Meds if any: Prescribed or Continued at Discharge Meds if any: NOT Prescribed or Continued at Discharge Venous thromboembolism Inclusion Criteria VTE Diagnosis No VTE Type NONE VTE Confirmed by (Test) NONE Discharge Core Measures - Per Current guidelines, there needs to be overlap - treatment for the first 5 days of Warfarin therapy. - If discharged on Warfarin prior to 5 days of - overlap therapy, the patient will need to be - assessed for post discharge needs including - *Post discharge parental anticoagulation - *Warfarin and/or parental anticoagulation education - *Follow up date to check INR post discharge At least 5 days overlap therapy as Inpatient No Meds if any: Prescribed or Continued at Discharge Note: Overlap Therapy is Warfarin and Anticoagulant Meds if any: NOT Prescribed or Continued at Discharge
[2017-11-11 22:08] VITALS: BP 138/80
[2017-11-12 06:15] VITALS: BP 150/102
--- NOTE | 2017-11-12 07:06 | PN- Housestaff ---
Trini PETERSEN,Pollo 11/12/17 0706: Subjective Follow-up For: sepsis community acquired LLL PNA Subjective: patient is complaining of a significant headache that is worse when he coughs remains afebrile on antibiotics blood cultures negative and sputum cultures mixed rosalia Review of Systems Constitutional: Reports: see HPI. Objective Last 24 Hrs of Vital Signs/I&O Vital Signs Date Time Temp Pulse Resp B/P B/P Pulse O2 O2 Flow FiO2 Mean Ox Delivery Rate 11/12 0801 86 138/88 11/12 0800 95 Room Air 11/12 0615 98.1 72 20 150/102 97 11/12 0000 Room Air 11/11 2208 98.3 66 20 138/80 95 Room Air 11/11 1559 Room Air 11/11 1443 98.8 66 20 140/94 95 Room Air 11/11 1116 96 Room Air Room Air Intake & Output 11/12 1600 11/12 0800 11/12 0000 Intake Total 810 Output Total 900 Balance -90 Intake, IV 10 Intake, Oral 800 Number 0 Bowel Movements Output, Urine 900 Physical Exam General Appearance: Alert, Oriented X3, Cooperative, No Acute Distress Cardiovascular: Regular Rate, Normal S1, Normal S2, No Murmurs Lungs: Clear to Auscultation, Normal Air Movement Abdomen: Normal Bowel Sounds, Soft, No Tenderness, No Masses Extremities: No Clubbing, No Cyanosis, No Edema, Normal Pulses Current Medications: Current Medications Sig/Gerry Start time Last Medication Dose Route Stop Time Status Admin Acetaminophen 650 MG .STK-MED ONE 11/12 2031 DC PO 11/11 2032 Acetaminophen 650 MG Q6-PRN PRN 11/10 0115 AC 11/11 PO 2038 Acetaminophen/ 1 TAB Q8P PRN 11/10 0715 AC 11/12 Butalbital/Caffeine PO 0501 Albuterol Sulfate 2 PUF Q4 11/12 1000 AC INH Albuterol Sulfate 3 ML Q4P PRN 11/10 1030 AC 11/11 INH 1114 Amitriptyline HCl 40 MG QPM 11/10 2100 AC 11/11 PO 203 Azithromycin 500 MG Q24H 11/10 0900 AC 11/12 Sodium Chloride 250 ML IV 0813 Benzocaine/Menthol 1 LEAH Q2P PRN 11/10 0330 AC 11/11 PO 1651 Benzonatate 100 MG TID PRN 11/10 0315 AC 11/11 PO 11/13 0314 0726 Budesonide/ 2 PUF BID 11/10 1053 AC 11/12 Formoterol Fumarate INH 0816 Ceftriaxone Sodium 1,000 MG DAILY 11/10 899 AC 11/12 IV 0813 Enoxaparin Sodium 40 MG DAILY 11/10 899 AC 11/12 SC 0816 Fenofibrate 145 MG DAILY 11/12 899 AC 11/12 PO 0816 Fluticasone 1 PUF DAILY 11/12 899 AC 11/12 Propionate INH 0817 Fluticasone 2 SPRAY DAILY 11/10 899 AC 11/12 Propionate MADISYN 0814 Gabapentin 300 MG TID 11/10 899 AC 11/12 PO 0814 Guaifenesin 600 MG BID 11/10 0315 AC 11/12 PO 0813 Guaifenesin/Codeine 10 ML Q4 HRS NEEDED PRN 11/10 0330 AC 11/10 Phosphate PO 2216 Lidocaine 15 ML TID 11/10 1707 AC 11/12 PO 0813 Losartan Potassium 100 MG DAILY 11/10 899 AC 11/12 PO 0815 Oxycodone HCl 5 MG Q6 PRN 11/10 0115 AC 11/12 PO 0420 Pravastatin Sodium 20 MG DAILY 11/10 899 AC 11/12 PO 0813 Zolpidem Tartrate 5 MG AT BEDTIME 11/12 2100 CAN PO Zolpidem Tartrate 5 MG AT BEDTIME 11/10 0200 AC 11/11 PO 203 Assessment/Plan Assessment: 37 year old male with PMH of HTN, HLD, and nephrolithiasis presents with several day of cough with SIRS criteria and LLL infiltrate on chest x-ray, admitted for management of sepsis secondary to community acquired pneumonia. Sepsis secondary to community acquired pneumonia: Leukocytosis, tachycardia, fever all resolved Chest c-khn-loykyw airspace disease more set the left base with subtle air bronchograms Repeat chest x-ray Continue ceftriaxone and azithromycin Legionella and strep pneumo urinary antigens negative Mucinex 600mg po bid, robitussin and tessalon for cough, and nebulized albuterol Never required supplemental oxygen HTN: Continue losartan HLD: Continue statin therapy Headache/migraine: Continue fioricet prn and gabapentin and elavil Heart healthy diet DVT ppx-lovenox 40mg subcutaneous daily Full code Stable for discharge on oral antibiotics, follow up chest x-ray to document resolution of LLL PNA, and pulmonology follow up with Dr. Lugo for PFTs Problem List: 1. Pneumonia Pain Ratin Pain Location: head ache Pain Goal: Pain 4 or less Pain Plan: prn Tomorrow's Labs & Rationales: none, discharge Ferdinand PETERSEN,Nuris 11/12/17 1206: Attending MD Review Statement Attending Statement Attending MD Statement: examined this patient, discuss w/resident/PA/HEADING REPAIRER, agreed w/resident/PA/HEADING REPAIRER, reviewed EMR data (avail), discussed with nursing, discussed with case mgmt, amended to note Attending Assessment/Plan: Patient seen and examined. Reports feeling better compared to presentation. Reports mild productive cough. Denies chest pain. Denies palpitations. Afebrile and hemodynamically stable. Still not requiring oxygen supplementation. On examination he has adequate entry bilaterally with no significant added sounds. Chest x-ray done today shows interval improvement of left-sided pneumonia. Sputum culture is growing yeast which is unlikely to be related to his current condition given the improvement of his clinical course of antibiotic therapy. We will transition him today to oral antibiotic therapy. He will complete 1 more dose of azithromycin and will continue on Augmentin to complete another 6 days of treatment. Has been advised to follow-up his primary care provider as an outpatient for repeat chest x-ray and follow-up. We have also provided with a referral to the pulmonology service.
[2017-11-12 08:01] VITALS: BP 138/88
[2017-11-12] MEDS ORDERED: TESSALON PERLE100 M1 PO ×2 (08:14→09:17)
[2017-11-12] MEDS ORDERED: PROBIOTIC1 EAC4 PO ×2 (08:14→09:17)
[2017-11-12] MEDS ORDERED: ZITHROMAX500 M2 PO ×3 (08:15→09:17)
[2017-11-12] MEDS ORDERED: AUGMENTIN 875-1 EACH PO ×2 (08:51→09:17)
[2017-11-12] MEDS ORDERED: PROAIR HFA8.5 GM INH ×2 (09:15→09:17)
--- NOTE | 2017-11-12 10:01 | Discharge Summary ---
Visit Information Visit Dates Admission Date: 11/09/17 Discharge Date: 11/12/17 Hospital Course Course Attending Physician: Nuris Streeter MD Primary Care Physician: Andrea PETERSEN,[facility] Course: 37 year old male with PMH of HTN, HLD, and nephrolithiasis presented with several days of fevers (tmax 102.8 at home) with symptoms of upper respiratory tract infection, rhinorrhea, sore throat, and worsening cough productive of yellow sputum. His son was sick days prior to his symptoms. He also had chest, abdominal, back pain, and headache all aggravated by coughing. On admission he met SIRS criteria (leukocytosis, tachycardia, and fever) with a left lower lobe infiltrate on chest x-ray. He was admitted for sepsis secondary to community acquired pneumonia. He was treated with intravascular volume resuscitation with crystalloid and antibiotics (ceftriaxone and azithromycin). His lactic acid, blood cultures, and legionella and strep pneumo urinary antigens were all negative. He was given mucinex, robitussin and tessalon for cough, and nebulized albuterol treatment for his symptoms. He never required supplemental oxygen. After treatment with four days of intravenous antibiotics, he was stable for discharge to complete a ten day course of augmentin and one final day of oral azithromycin. A repeat chest x-ray showed improved aeration of the left lower lobe without complete resolution. His home medications were continued for hypertension, dyslipidemia and migraines. He will need a follow up chest x-ray to document resolution of his pneumonia and pulmonology follow up with Dr. Lugo for pulmonary function testing. Allergies: Coded Allergies: No Known Allergies (10/25/17) Significant Procedures: CHEST X-RAY 11/12/17 FINDINGS: Previously documented patchy airspace disease at left lung base shows significant interval improvement without resolution. The remainder of the lung sommers remain clear. Low lung volume is present bilaterally. The cardiomediastinal silhouette is within normal limit. There is no pleural effusion or pneumothorax present. The visualized upper abdomen is unremarkable. IMPRESSION: Interval improvement without resolution of left lower lobar airspace disease since 11/09/2017. Continued followup to complete resolution is recommended. Disposition Summary Disposition Principal Diagnosis: Sepsis secondary to community acquired left lower lobe pneumonia Additional Diagnosis: Hypertension Dyslipidemia Migraines Discharge Disposition: home or self care Discharge Instructions General Discharge Information Code Status: Full Code Patient's Diet: Heart healthy Patient's Activity: As tolerated Follow-Up Instructions/Appts: Follow up with your primary care physician. You will need a repeat chest x-ray to evaluate for resolution of your pneumonia. Also follow up with a caddie supervisor (Dr. Lugo) for pulmonary function testing. Medications at Discharge Discharge Medications: Continue taking these medications: Pravastatin Sodium (Pravastatin Sodium) 20 MG TABLET 1 Tablet ORAL DAILY Qty = 30 Comments: Last Taken: 11/12/17 Time: 0800AM Testosterone Cypionate (Testosterone Cypionate) 200 MG/ML VIAL 1 Milliliters INTRAMUSC EVERY SUNDAY Qty = 10 Comments: NOT GIVEN IN HOSPITAL Fenofibrate Nanocrystallized (Fenofibrate) 145 MG TABLET 1 Tablet ORAL DAILY Qty = 30 Comments: Last Taken: 11/12/17 Time: 0800AM Losartan Potassium (Losartan Potassium) 100 MG TABLET 1 Tablet ORAL DAILY Qty = 30 Comments: Last Taken: 11/12/17 Time: 0800AM Amitriptyline HCl (Amitriptyline HCl) 10 MG TABLET 4 Tablet ORAL Every night Qty = 120 Comments: Last Taken: 11/11/17 Time: 2000PM Orphenadrine Citrate (Orphenadrine Citrate) 100 MG TABLET.ER 1 Tablet ORAL 2 x Daily as needed as needed for MUSCLE RELAXER Qty = 8 Comments: NOT GIVEN IN HOSPITAL Gabapentin (Gabapentin) 300 MG CAPSULE 1 Capsule ORAL THREE TIMES DAILY Qty = 90 Comments: Last Taken: 11/12/17 Time: 0800AM Fluticasone Propionate (Fluticasone Propionate) 50 MCG/ACTUATION SPRAY.SUSP 2 Barre Both sides of nose DAILY Qty = 16 Comments: Last Taken: 11/12/17 Time: 0800AM Butalb/Acetaminophen/Caffeine (Dofmyc-Jdrplfrg-Jvbi 50-300-40) 50 MG-300 MG-40 MG CAPSULE 1 Capsule ORAL Q4H as needed for MIGRAINES Qty = 90 Comments: Last Taken: 11/12/17 Time: 0500AM Eszopiclone (Eszopiclone) 3 MG TABLET 1 Tablet ORAL Every night Qty = 30 Comments: NOT GIVEN IN HOSPITAL Anastrozole (Anastrozole) 1 MG TABLET 1 Tablet ORAL SUNDAY, SUNDAY AND SUNDAY Qty = 12 Comments: NOT GIVEN IN HOSPITAL Fluticasone/Vilanterol (Breo Ellipta 100-25 Mcg INH) 100 MCG-25 MCG/DOSE BLST.W.DEV 1 Puff Inhale through mouth DAILY Qty = 60 Comments: NOT GIVEN IN HOSPITAL Aspirin/Acetaminophen/Caffeine (Excedrin Migraine Caplet) 250 MG-250 MG-65 MG TABLET 1 Capsule ORAL TWICE DAILY as needed for MIGRAINES Comments: NOT GIVEN IN HOSPITAL; FIORCET GIVEN 11/12/17 @0500AM Start taking the following new medications: L.acidoph,Paracasei, B.lactis (Probiotic) 10 BILLION CELL CAPSULE 1 Tablet ORAL DAILY Qty = 12 No Refills Instructions: TAKE WITH ANTIBIOTIC. Comments: NOT GIVEN IN HOSPITAL Benzonatate (Tessalon Perle) 100 MG CAPSULE 1 Capsule ORAL THREE TIMES DAILY Qty = 21 No Refills Instructions: . Comments: NOT GIVEN IN HOSPITAL Albuterol Sulfate (Proair Hfa) 90 MCG HFA.AER.AD 2 Puff Inhale through mouth EVERY 4-6 HOURS NEEDED as needed for DIFFICULTY BREATHING Qty = 1 No Refills Instructions: . Comments: NOT GIVEN IN HOSPITAL Amoxicillin/Potassium Clav (Augmentin 875-125 Tablet) 875 MG-125 MG TABLET 1 Tablet ORAL TWICE DAILY Qty = 12 No Refills Instructions: . Comments: NOT GIVEN IN HOSPITAL Azithromycin (Zithromax) 500 MG TABLET 1 Tablet ORAL DAILY Qty = 1 No Refills Instructions: . Comments: ZITHROMAX IV GIVEN 11/12/17 0800AM Copies To: Shahzad Mendez MD; Parish PETERSEN,Saúl Attending MD Review Statement Documenting Attending: Nuris Streeter MD Other Findings: Patient is a 37-year-old gentleman with history of asthma who was hospitalized for management of committee acquired pneumonia. He met criteria for sepsis upon presentation. He responded to intravenous antibiotic therapy with improvement of his clinical symptoms and some improvement of radiologic findings as well. He is medically stable to be discharged home today and will follow up with his primary care provider as an outpatient. He has also been provided with a referral to a pulmonology service for follow-up.
--- NOTE | 2017-11-12 10:38 | RADIOLOGY REPORT ---
EXAMINATION: XR PORTABLE CHEST CLINICAL INFORMATION: Pneumonia. COMPARISON: Chest done on 11/09/2017. TECHNIQUE: Portable 85 degrees single frontal view of the chest was obtained. FINDINGS: Previously documented patchy airspace disease at left lung base shows significant interval improvement without resolution. The remainder of the lung sommers remain clear. Low lung volume is present bilaterally. The cardiomediastinal silhouette is within normal limit. There is no pleural effusion or pneumothorax present. The visualized upper abdomen is unremarkable. IMPRESSION: Interval improvement without resolution of left lower lobar airspace disease since 11/09/2017. Continued followup to complete resolution is recommended.
== END 2017-11-12 13:20 | DRG 720 ==
LOC: ERH 20:16 → ERHI 22:06 → 2NB 22:06 → ENRESERV 22:38 → 2NB 23:45 → ENPENDDIS 11-12 11:53 → 2NB 11-12 13:20
PROVIDERS: Internal Medicine; Preventive Medicine Public Health & General Preventive Medicine
DX: A41.9 Sepsis, unspecified organism (principal); J18.9 Pneumonia, unspecified organism; I10 Essential (primary) hypertension; E78.5 Hyperlipidemia, unspecified; J45.909 Unspecified asthma, uncomplicated; E87.2 Acidosis; Z79.82 Long term (current) use of aspirin; Z79.51 Long term (current) use of inhaled steroids; B95.4 Other streptococcus as the cause of diseases classified elsewhere
CPT/HCPCS: 2NBP; 2NBSP; 36415; 36592; 71045; 71046; 80307; 81003; 82436; 87040; 87070; 87071; 87086; 87449; 87450; 87804; 87804-59; 93005; 93010; 96361; 96374; 99291; G0480; J0456; J0696; J1650; J2930; J3490; J7040